=== PATIENT | female | born 1990 | race Asian ===

== ENCOUNTER 2020-01-03 00:10 | Emergency (ER) | payer OTHER ==
[~2020-01-03] VITALS: Ht 167.6 cm; Wt 59.0 kg
[2020-01-03 00:40] VITALS: BP_SYST 108
--- NOTE | 2020-01-03 00:50 | NUR ---
Patient to ER bed 04 to gown for evaluation. Side rails up.
[2020-01-03] MEDS ORDERED: NACL 0.9% 1,000 ML IV ONE (01:00)
[2020-01-03] MEDS ORDERED: ONDANSETRON HCL 4 MG/2 ML VIAL IVP ONE (01:00)
--- NOTE | 2020-01-03 01:00 | NUR ---
Pt presents to ER with c/o abdominal pain, nausea and vomiting. Pt A&Ox4. Pt states abdominal pain began yesterday evening. Pt states intermittent abdominal pain for 4 months. Pt states nausea and 2 episodes of vomiting before arrival to ER. Pt states emesis was non bloody. Pt states fever before arrival. Pt states no medications were taken. Pt afebrile upon arrival to ER. Upon assessment, pt has 3/10 periumbilical pain that is non-radiating. Pt denies diarrhea, SOB, chest pain, dizziness and cough. Breath sounds bilaterally clear and even with no use of accessory muscles. Will continue to monitor.
--- NOTE | 2020-01-03 01:05 | NUR ---
ER Dr. Gipson at bedside examining patient.
[2020-01-03 01:21] LABS: BILIRUBIN,URINE 1+ (NEGATIVE); BLOOD, URINE 3+ (NEGATIVE); CLARITY/URINE CLOUDY (CLEAR); COLOR,URINE YELLOW (YELLOW); GLUCOSE,URINE NEGATIVE (NEGATIVE); KETONES,URINE 2+ (NEGATIVE); LEUKOCYTE ESTERASE ,URINE 1+ (NEGATIVE); NITRITE, URINE POSITIVE (NEGATIVE); PROTEIN URINE 2+ (NEGATIVE)
[2020-01-03] MEDS ORDERED: FAMOTIDINE PF 20 MG/2 ML VIAL IVP ONE (01:30)
--- NOTE | 2020-01-03 01:34 | NUR ---
# 20 gauge angiocath placed to L AC. Use of asceptic technique. Opsite placed over site. Blood return noted. Blood for lab drawn from site. Flushed with 10 cc of normal saline. No evidence of infiltration noted. Patient tolerated well.
--- NOTE | 2020-01-03 01:40 | NUR ---
JOSE CARLOS Jensen at bedside medicating pt.
[2020-01-03 01:55] LABS: BASOPHILS % (AUTO) 0.2 % (0.0-2.0); EOSINOPHILS % (AUTO) 0.2 % (0.0-4.0); HEMATOCRIT 39.2 % (36-48); HEMOGLOBIN 13.1 g/dL (12.0-16.0); LYMPHOCYTES # (AUTO) 0.5 K/uL (1.0-5.5); LYMPHOCYTES % (AUTO) 9.9 % (20.5-51.5); MEAN CORPUSCULAR HEMOGLOBIN 28 pg (27-31); MEAN CORPUSCULAR HGB CONC 34 % (32-36); MEAN CORPUSCULAR VOLUME 82 fL (79.0-98.0); MONOCYTES # (AUTO) 0.4 K/uL (0.0-1.0); MONOCYTES % (AUTO) 8.3 % (1.7-9.3); NEUTROPHILS # (AUTO) 4.4 K/uL (1.8-7.7); NEUTROPHILS % (AUTO) 81.4 % (40.0-70.0); PLATELET COUNT (AUTO) 143 K/uL (130-430); RED BLOOD CELL COUNT(AUTO) 4.76 MIL/uL (4.2-6.2); RED CELL DISTRIBUTION WIDTH 12.9 % (9.0-15.0); WHITE BLOOD COUNT (AUTO) 5.4 K/uL (4.8-10.8)
[2020-01-03 02:00] LABS: CALCIUM 8.8 mg/dL (8.4-11.0); CREATININE 0.81 mg/dL (0.55-1.30); POTASSIUM 3.8 mmol/L (3.5-5.1)
[2020-01-03 02:00] LABS: BACTERIA,URINE MODERATE /HPF (None Seen); RBC,URINE >100 /HPF (0-3)
[2020-01-03 02:01] LABS: FINE GRANULAR CASTS,URINE 0-10 /LPF (None Seen)
[2020-01-03 02:04] LABS: ALBUMIN 4.1 g/dL (3.4-4.8); TOTAL BILIRUBIN 0.7 mg/dL (0.0-1.0)
--- NOTE | 2020-01-03 02:21 | NUR ---
ER Dr. Gipson at bedside explaining results to patient.
[2020-01-03 02:37] VITALS: BP_SYST 110
--- NOTE | 2020-01-03 02:37 | NUR ---
Patient given written and verbal discharge instructions and verbalizes understanding. ER MD Gipson discussed with patient the results and treatment provided. Patient in stable condition. ID arm band removed. IV catheter removed intact and dressing applied, no active bleeding. Rx of macrobid, pepcid, and zofran given. Patient educated on pain management and to follow up with PMD. Pain Scale 0/10. Opportunity for questions provided and answered. Medication side effect fact sheet provided.
== END 2020-01-03 02:37 | disposition home or self-care (01) ==
LOC: SED 00:10
DX: N39.0 Urinary tract infection, site not specified (principal); R10.33 Periumbilical pain; R11.2 Nausea with vomiting, unspecified; R05 Cough
CPT/HCPCS: 36415; 80053; 81000; 81025; 83690; 85025; 87086; 96361; 96374; 96375; 99284; J2405; J3490; J7030; 87186-TC